=== PATIENT | male | born 1955 | race Caucasian/White ===

== ENCOUNTER 2020-06-22 04:30 | Outpatient (CLI) | payer BC, OTHER, SELFPAY ==
[2020-06-22 13:52] LABS: HGB 13.2 g/dL (13.5-17.5); MCH 27.7 pg (27.0-33.0); MCHC 32.2 % (32.0-36.0); MCV 86.1 fL (80-95); MPV 10.1 fL (8.0-11.0); Platelet Count 273 10^3/uL (130-400); RBC 4.76 10^6/uL (4.36-5.78); RDW 13.3 % (11.8-14.1); RDW-SD 42.1 fL; WBC 8.94 10^3/uL (4.4-10.8)
[2020-06-22 14:05] LABS: Hemoglobin A1C 7.5 % (3.8-5.6)
[2020-06-22 14:18] LABS: Microalb ug/mg Crea 5.2 ug/mg Cr
[2020-06-22 14:34] LABS: ALT 86 U/L (16-63); AST 47 U/L (15-37); Albumin 4.4 g/dL (3.4-5.0); Alkaline Phosphatase 77 U/L (46-116); Anion Gap 8.6 mmol/L (3-11); BUN 27 mg/dL (7-18); Bilirubin, Total 0.4 mg/dL (0.2-1.0); CO2 28.4 mmol/L (21.0-32.0); CREATININE 1.26 mg/dL (0.70-1.30); Calcium 9.7 mg/dL (8.5-10.1); Calculated LDL 59 mg/dL (<100); Chloride 103 mmol/L (98-107); Cholesterol 117 mg/dL (<200); Glucose 121 mg/dL (74-106); HDL Cholesterol 35 mg/dL (40-60); Potassium 5.2 mmol/L (3.5-5.1); Sodium 140 mmol/L (136-145); Total Protein 8.1 g/dL (6.4-8.2); Triglyceride 116 mg/dL (<150)
[2020-06-22 22:24] LABS: PSA, Screening 0.3 ng/mL (0.0-4.5)
[2020-06-23 11:26] LABS: Hepatitis C Ab w Rflx HCV PCR Negative (Negative)
== END 2020-06-22 04:50 ==
PROVIDERS: PCP Nurse Practitioner; Visit Provider Nurse Practitioner
DX: E11.9 Type 2 diabetes mellitus without complications (principal); I10 Essential (primary) hypertension; Z12.5 Encounter for screening for malignant neoplasm of prostate; Z11.59 Encounter for screening for other viral diseases; F32.9 Major depressive disorder, single episode, unspecified
CPT/HCPCS: 36415; 80053; 80061; 84153; 85027; 86803; 82043; 82570; 83036

== ENCOUNTER 2020-12-31 01:58 | Outpatient (CLI) | payer BC, SELFPAY ==
[2021-01-01 13:52] LABS: COVID-19 RT-PCR UVMMC Result Negative (Negative)
== END 2020-12-31 01:59 | disposition home or self-care (01) ==
LOC: LBO 01:59
PROVIDERS: PCP Nurse Practitioner; Visit Provider Nurse Practitioner
DX: Z20.822 Contact with and (suspected) exposure to COVID-19 (principal)
CPT/HCPCS: U0003

== ENCOUNTER 2021-01-03 14:47 | Outpatient (REF) | payer BC, SELFPAY ==
[2021-01-03 18:21] LABS: Abs Immature Grans 0.06 10^3/uL (0.0-0.06); Absolute Basophil Count 0.08 10^3/uL (0.0-0.2); Absolute Eosinophil Count 0.14 10^3/uL (0.0-0.7); Absolute Lymphocyte Count 1.81 10^3/uL (1.2-3.4); Absolute Monocyte Count 1.13 10^3/uL (0.1-0.8); Absolute Neutrophil Count 3.03 10^3/uL (1.2-6.7); Basophils % 1.3; Eosinophils % 2.2; HCT 37.6 % (40.0-50.0); HGB 12.2 g/dL (13.5-17.5); MCH 27.9 pg (27.0-33.0); MCHC 32.4 % (32.0-36.0); MCV 85.8 fL (80-95); MPV 9.4 fL (8.0-11.0); Monocytes % 18.1; Neutrophils % 48.4; Nucleated RBC 0 %; Platelet Count 383 10^3/uL (130-400); RBC 4.38 10^6/uL (4.36-5.78); RDW 14.3 % (11.8-14.1); RDW-SD 45.4 fL; WBC 6.25 10^3/uL (4.4-10.8)
[2021-01-03 19:03] LABS: Hemoglobin A1C 7.9 % (<5.7)
[2021-01-03 19:09] LABS: ALT 38 U/L (16-63); AST 18 U/L (15-37); Albumin 3.8 g/dL (3.4-5.0); Alkaline Phosphatase 74 U/L (46-116); BUN 33 mg/dL (7-18); Bilirubin, Direct 0.09 mg/dL (0.00-0.20); Bilirubin, Total 0.5 mg/dL (0.2-1.0); CREATININE 1.9 mg/dL (0.70-1.30); Calcium 9.5 mg/dL (8.5-10.1); Chloride 103 mmol/L (98-107); Estimated GFR 35.87 (mL/min/1.73m2); Glucose 159 mg/dL (74-106); Potassium 5.9 mmol/L (3.5-5.1); Sodium 136 mmol/L (136-145); Total Protein 7.6 g/dL (6.4-8.2)
[2021-01-05 09:57] LABS: Hepatitis A Antibody IgM Negative (Negative); Hepatitis B Core Antibody Negative (Negative); Hepatitis B surface Ag Negative (Negative); Hepatitis C Ab w Rflx HCV PCR Negative (Negative)
== END 2021-01-03 14:48 | disposition home or self-care (01) ==
LOC: LBO 14:47
PROVIDERS: PCP Nurse Practitioner; Visit Provider Nurse Practitioner
DX: E11.9 Type 2 diabetes mellitus without complications (principal); R63.4 Abnormal weight loss; R19.7 Diarrhea, unspecified; R79.89 Other specified abnormal findings of blood chemistry; Z11.59 Encounter for screening for other viral diseases
CPT/HCPCS: 80053; 80076; 86704; 86709; 86803; 87340; 83036; 85025

== ENCOUNTER 2021-01-04 21:46 | Outpatient (REF) | payer BC, SELFPAY ==
[2021-01-04 15:23] LABS: C Diff PCR Negative (Negative)
[2021-01-05 10:45] LABS: Campylobacter PCR Positive (Negative); Salmonella PCR Negative (Negative); Shiga Toxin PCR Negative (Negative); Shigella/Enteroinvasive Ecoli Negative (Negative)
== END 2021-01-04 21:47 | disposition home or self-care (01) ==
LOC: NCHCN 21:46
PROVIDERS: PCP Nurse Practitioner; Visit Provider Nurse Practitioner
DX: R19.7 Diarrhea, unspecified (principal); R63.4 Abnormal weight loss
CPT/HCPCS: 87493; 87505

== ENCOUNTER 2024-01-08 12:51 | Outpatient (CLI) | payer MEDICARE, BC, SELFPAY ==
[2024-01-08 11:31] LABS: Abs Immature Grans 0.06 10^3/uL (0.0-0.06); Absolute Eosinophil Count 0.53 10^3/uL (0.0-0.7); Absolute Lymphocyte Count 2.51 10^3/uL (1.2-3.4); Absolute Monocyte Count 0.72 10^3/uL (0.1-0.8); Absolute Neutrophil Count 4.82 10^3/uL (1.2-6.7); Basophils % 1.1; Eosinophils % 6.1; HCT 39.5 % (40.0-50.0); HGB 12.6 g/dL (13.5-17.5); Immature Grans % 0.7; Lymphocytes % 28.7; MCHC 31.9 % (32.0-36.0); MCV 85 fL (80-95); MPV 9.8 fL (8.0-11.0); Monocytes % 8.2; Neutrophils % 55.2; Platelet Count 248 10^3/uL (130-400); RBC 4.67 10^6/uL (4.36-5.78); RDW 14.7 % (11.8-14.1); RDW-SD 45.6 fL; WBC 8.74 10^3/uL (4.4-10.8)
[2024-01-08 11:32] LABS: Bilirubin Negative (Negative); Blood Negative (Negative); Clarity Clear (Clear); Glucose Negative (Negative); Ketones Negative (Negative); Leukocyte Esterase Negative (Negative); Nitrite Negative (Negative); Urobilinogen 0.2 mg/dL (Up to 0.2); pH 5.5 (5-8)
[2024-01-08 11:46] LABS: Hemoglobin A1C 7.2 % (<5.7)
[2024-01-08 12:11] LABS: ALT 39 U/L (16-63); AST 17 U/L (15-37); Albumin 4.3 g/dL (3.4-5.0); Alkaline Phosphatase 75 U/L (46-116); Anion Gap 10.1 mmol/L (3-11); BUN 33 mg/dL (7-18); Bilirubin, Total 0.4 mg/dL (0.2-1.0); CO2 26.9 mmol/L (21.0-32.0); CREATININE 1.6 mg/dL (0.70-1.30); Calcium 9.8 mg/dL (8.5-10.1); Calculated LDL 48 mg/dL (<100); Chloride 106 mmol/L (98-107); Cholesterol 108 mg/dL (<200); Estimated GFR 46.93 (mL/min/1.73m2); Glucose 151 mg/dL (74-106); HDL Cholesterol 44 mg/dL (40-60); Potassium 5.1 mmol/L (3.5-5.1); Sodium 143 mmol/L (136-145); Total Protein 8.2 g/dL (6.4-8.2); Triglyceride 82 mg/dL (<150)
== END 2024-01-08 12:52 | disposition home or self-care (01) ==
LOC: LBO 12:51
PROVIDERS: PCP Nurse Practitioner; Visit Provider Nurse Practitioner
DX: I10 Essential (primary) hypertension (principal); E11.9 Type 2 diabetes mellitus without complications
CPT/HCPCS: 36415; 80053; 80061; 81003; 83036; 85025

== ENCOUNTER 2024-01-29 10:36 | Outpatient (REF) | payer MEDICARE, BC, SELFPAY | END 2024-01-29 10:37 | disposition home or self-care (01) | LOC: LBN 10:36 | PROVIDERS: PCP Nurse Practitioner; Visit Provider Nurse Practitioner | DX: R30.0 Dysuria (principal) | CPT/HCPCS: 87086 ==

== ENCOUNTER 2024-02-11 15:45 | Outpatient (REF) | payer MEDICARE, BC, SELFPAY | END 2024-02-11 15:46 | disposition home or self-care (01) | LOC: LBN 15:45 | PROVIDERS: PCP Nurse Practitioner; Visit Provider Nurse Practitioner | DX: R30.0 Dysuria (principal) | CPT/HCPCS: 87086 ==

== ENCOUNTER → 2024-02-25 04:20 | Outpatient (CLI) | payer MEDICARE, BC, SELFPAY ==
--- NOTE | 2024-02-25 08:00 | DI.CT_ITS ---
Exam(s) CT RENAL COLIC WO EXAM: CT RENAL COLIC WO CLINICAL HISTORY: left flank pain,h/o kidney stones, z87.442,r10.9. TECHNIQUE: Imaging Protocol: Axial computed tomography images with coronal and sagittal reformatted images were created and reviewed. COMPARISON: No exams were available for comparison FINDINGS: ABDOMEN: Lung Bases: Calcified granuloma are present. Emphysematous changes are seen in the lung bases. Grou nd-glass nonspecific infiltrates are seen in the lower lobes bilaterally. No focal consolidating inf iltrates. Liver: Normal density. No measurable mass. Gallbladder and biliary tract: No radiodense calculus or biliary ductal dilation. Pancreas: Normal density, no abnormal calcifications or inflammatory process. Spleen: Normal. Kidneys: Normal size, contour and axis.No radiodense stones or obstructive uropathy. Left renal cysts are present. No follow-up is recommended. Adrenal glands: No mass is seen. Lymph nodes: Within normal limits. Abdominal Aorta: Abdominal portion non-dilated. Atherosclerotic calcification is present. PELVIS: Bladder:The urinary bladder is incompletely distended limiting evaluation. Bowel: No obstruction or bowel wall thickening. No evidence of appendicitis. Peritoneal cavity: No ascites, collection or mesenteric inflammatory response. No free air. Reproductive organs: Unremarkable as visualized. Bones: Within normal limits. Soft Tissues: Within normal limits. IMPRESSION: 1. No evidence of nephrolithiasis or hydronephrosis. 2. Ground-glass nonspecific if pack infiltrates in the lower lobes. No focal consolidating infiltrat es. 3. Emphysematous changes in the lung bases. RADIATION DOSE DELIVERED: 988.08mGy.cm Total DLP DATA REPOSITORY: All CT scans at this facility are submitted to the National Radiology Data Registry (NRDR) Dose Index Registry (DIR) with the [employer] ([employer]). RADIATION OPTIMIZATION: All CT scans at this facility use at least one of these dose optimization te chniques: automated exposure control; mA and/or kV adjustment per patient size (includes targeted exa ms where dose is matched to clinical indication); or iterative reconstruction.
== END ==
PROVIDERS: PCP Nurse Practitioner; Visit Provider Nurse Practitioner
DX: R91.8 Other nonspecific abnormal finding of lung field (principal); Z87.442 Personal history of urinary calculi
CPT/HCPCS: 74176

== ENCOUNTER → 2024-03-27 03:19 | Outpatient (CLI) | payer MEDICARE, BC, SELFPAY ==
--- NOTE | 2024-03-27 15:02 | DI.CT_ITS ---
Exam(s) CT CHEST WO EXAM: CT CHEST WO CLINICAL HISTORY: abn lung imaging on abdomen ct,r93.89,ground glass infiltrates. TECHNIQUE: Multi planar reconstructions were performed. CONTRAST MATERIAL: None COMPARISON: CT CT RENAL COLIC WO from 02/25/2024 FINDINGS: CHEST: LUNGS: There are multiple tiny bilateral lung nodules which are evident on the axial MIP images and h ave benign appearance. These all measure approximately 2 mm size. There are no ominous focal nodule s evident and no pleural effusions. However, there are symmetrical increased subpleural markings in both lung bases located peripherally involving all basal segments of both lower lobes as well as the inferior lingular segment of the left lung and inferior aspect of the right middle lobe, this finding corresponding to what was described on the recent uppermost images of abdominal CT scan of 4. The symmetrical bilateral subpleural ground-glass infiltrates are not associated with obvious bro nchiectasis nor bullae and no overlying rib destruction. There are no pleural plaques evident. MEDIASTINUM: There is no obvious hilar nor mediastinal adenopathy. Visualized thyroid unremarkable.No supraclavicular adenopathy. No axillary adenopathy. CARDIAC: Heart size is normal. There is no pericardial effusion.Caliber of the thoracic aorta is wit hin normal limits. VISUALIZED UPPER ABDOMEN:No adrenal masses. No splenomegaly. Benign cysts noted in the partially in cluded left kidney. These measure up to 2 cm size. OSSEOUS: No significant osseous lesions.Fractures.. IMPRESSION: 1. There are symmetrical subpleural increased ground-glass markings circumferentially located in both lung bases involving all the basal segments of both lower lobes as well as the inferior lingular seg ment of the left lung and right middle lobe. There is sparing of the upper lobes. No associated ple ural effusions nor intrathoracic adenopathy. Recommend pulmonology consultation. This finding requi res close follow-up. RADIATION DOSE DELIVERED: 576.73mGy.cm Total DLP DATA REPOSITORY: All CT scans at this facility are submitted to the National Radiology Data Registry (NRDR) Dose Index Registry (DIR) with the [employer] ([employer]). RADIATION OPTIMIZATION: All CT scans at this facility use at least one of these dose optimization te chniques: automated exposure control; mA and/or kV adjustment per patient size (includes targeted exa ms where dose is matched to clinical indication); or iterative reconstruction.
== END ==
PROVIDERS: PCP Nurse Practitioner; Visit Provider Nurse Practitioner
DX: R93.89 Abnormal findings on diagnostic imaging of other specified body structures (principal)
CPT/HCPCS: 71250

== ENCOUNTER 2025-02-26 01:09 | Outpatient (CLI) | payer MEDICARE, BC, SELFPAY ==
[2025-02-26 12:22] LABS: HCT 40.8 % (40.0-50.0); HGB 12.9 g/dL (13.5-17.5); MCH 26.2 pg (27.0-33.0); MCHC 31.6 % (32.0-36.0); MCV 83 fL (80-95); MPV 9.6 fL (8.0-11.0); Platelet Count 238 10^3/uL (130-400); RBC 4.93 10^6/uL (4.36-5.78); RDW 15.1 % (11.8-14.1); RDW-SD 45.3 fL; WBC 8.91 10^3/uL (4.4-10.8)
[2025-02-26 13:52] LABS: ALT 40 U/L (16-63); AST 20 U/L (15-37); Albumin 4.6 g/dL (3.4-5.0); Alkaline Phosphatase 77 U/L (46-116); Anion Gap 12.5 mmol/L (3-11); BUN 35 mg/dL (7-18); Bilirubin, Total 0.3 mg/dL (0.2-1.0); CO2 23.5 mmol/L (21.0-32.0); CREATININE 1.6 mg/dL (0.70-1.30); Calcium 9.6 mg/dL (8.5-10.1); Calculated LDL 39 mg/dL (<100); Chloride 106 mmol/L (98-107); Cholesterol 99 mg/dL (<200); Estimated GFR 46.64 (mL/min/1.73m2); Glucose 134 mg/dL (74-106); HDL Cholesterol 45 mg/dL (>or=40); Potassium 4.6 mmol/L (3.5-5.1); Sodium 142 mmol/L (136-145); TSH (W/Ref FT4) 2.66 uIU/mL (0.36-3.74); Total Protein 8.5 g/dL (6.4-8.2); Triglyceride 79 mg/dL (<150); Vitamin B12 330 pg/mL (193-986)
== END 2025-02-26 01:10 | disposition home or self-care (01) ==
PROVIDERS: PCP Nurse Practitioner; Visit Provider Nurse Practitioner
DX: E11.9 Type 2 diabetes mellitus without complications (principal); I10 Essential (primary) hypertension; N18.9 Chronic kidney disease, unspecified; R25.1 Tremor, unspecified; R41.3 Other amnesia
CPT/HCPCS: 36415; 80053; 80061; 85027; 82607; 84443

== ENCOUNTER 2025-04-16 03:48 | Outpatient (CLI) | payer MEDICARE, BC, SELFPAY ==
--- NOTE | 2025-05-17 09:53 | W.PFT ---
Date of service: 04/16/25 Time of Service: 14:57 Pulmonary Function Test Result Indications: ILD Interpretation Spirometry: There is no airflow limitation. Diffusion Capacity: Normal diffusion Impression Normal spirometry and diffusion Clinical Correlation therefore is recommended.
== END 2025-04-16 03:49 | disposition home or self-care (01) ==
LOC: RT 03:49
PROVIDERS: PCP Nurse Practitioner; Visit Provider Student in an Organized Health Care Education/Training Program
DX: J84.9 Interstitial pulmonary disease, unspecified (principal)
CPT/HCPCS: 94618; 94729; 94010